=== PATIENT | female | born 1990 | race Two or more races ===

== ENCOUNTER 2023-03-19 18:00 | Inpatient (IN) | payer BC ==
[2023-03-19] MEDS ORDERED: Lidocaine 1% (PF) 30 ML VIAL SC PRN (19:02)
[2023-03-19] MEDS ORDERED: Ibuprofen 800 MG TAB PO PRN (19:02)
[2023-03-19] MEDS ORDERED: Promethazine HCl 25 MG/ML VIAL IM PRN (19:02)
[2023-03-19] MEDS ORDERED: Lactated Ringer's 1,000 ML IV SCH (19:02)
[2023-03-19] MEDS ORDERED: Ondansetron PF 4 MG/2 ML Vial IVP PRN (19:02)
[2023-03-19] MEDS ORDERED: fentaNYL 50 mcg/mL 1 mL Vial SLOW IVP PRN (19:02)
[2023-03-19] MEDS ORDERED: hydrALAZINE 20 MG/ML VIAL SLOW IVP PRN (19:02)
[2023-03-19] MEDS ORDERED: NS w/ Oxytocin 30 units 500 ML IV SCH ×3 (19:02)
[2023-03-19] MEDS ORDERED: HYDROcodone/Acetaminophen 5/325 mg Tablet PO PRN ×2 (19:02)
[2023-03-19 19:12] LABS: Hemoglobin 12.4 g/dL (12.0-15.5); Mean Corpuscular HGB CONC 33.3 g/dL (32.0-36.0); Mean Corpuscular Hemoglobin 27.7 pg (27.0-33.0); Mean Corpuscular Volume 83.2 fl (81.6-98.3); Platelet Count 197 10x3/uL (150-450); RBC Distribution Width 13.6 % (11.5-14.5); Red Blood Cell (RBC) Count 4.47 10x6/uL (3.90-5.03); White Blood Cell (WBC) Count 12.2 10x3/uL (3.5-10.5)
[2023-03-19 19:45] LABS: HBSAg Index 0.14 S/CO (0-0.99); Hep B Surf Ag - L&D Non-Reactive S/CO (NonReactive); Syphilis Antibody Nonreactive (Nonreactive); Syphilis Antibody Index 0.04 S/CO (<1.00 Non-Reactive)
[2023-03-19] MEDS ORDERED: Misoprostol 100 MCG TAB ONE (20:04)
[2023-03-19] MEDS ORDERED: Penicillin G Potassium 5 MILL.UNITS VIAL ONE (20:04)
[2023-03-19] MEDS ORDERED: Penicillin G Potassium 5 MILL.UNITS in Sodium Chloride 0.9% 100 ML IVPB SCH (20:15)
[2023-03-19] MEDS ORDERED: Misoprostol 100 MCG TAB VAG SCH (20:15)
[2023-03-19 22:15] VITALS: BMI 36.7
[2023-03-20] MEDS ORDERED: Misoprostol 100 MCG TAB VAG SCH
[2023-03-20] MEDS: Penicillin G 2.5 MILL.units 2.5 MILL.UNITS in Premix Bag 1 BAG IVPB SCH ×3 (00:34→12:29)
[2023-03-20] MEDS ORDERED: fentaNYL/Ropivacaine Epidural 100 ML ONE (04:03)
[2023-03-20] MEDS ORDERED: ePHEDrine Sulfate 50 MG/10 ML VIAL SLOW IVP PRN (04:10)
[2023-03-20] MEDS ORDERED: Ondansetron PF 4 MG/2 ML Vial IVP PRN ×2 (04:10→09:36)
[2023-03-20] MEDS ORDERED: Moisturizing Cream (Eucerin) 113 GM JAR TOP PRN (04:10)
[2023-03-20] MEDS ORDERED: Lactated Ringer's 500 ML IV PRN (04:10)
[2023-03-20] MEDS ORDERED: Acetaminophen 325 MG TAB PO PRN (04:10)
[2023-03-20] MEDS ORDERED: diphenhydrAMINE 50 MG/ML VIAL IVP PRN (04:10)
[2023-03-20] MEDS ORDERED: Promethazine HCl 25 MG/ML VIAL IM PRN (04:10)
[2023-03-20] MEDS ORDERED: Naloxone HCl 0.4 mg/ml Vial IVP PRN ×2 (04:10)
[2023-03-20] MEDS ORDERED: Communication Order-Pharmacy FS SCH (04:15)
[2023-03-20] MEDS ORDERED: fentaNYL 2 mcg/Ropivacaine 0.2% Epidural 100 ML CADD EPIDURAL SCH (04:15)
[2023-03-20] MEDS ORDERED: Milk Of Magnesia 30 ML UDCUP PO PRN (09:36)
[2023-03-20] MEDS ORDERED: Bisacodyl 10 MG SUPP PR PRN (09:36)
[2023-03-20] MEDS ORDERED: Boostrix 0.5 ML (Tdap) VIAL (>/=7 yrs of age) IM ONE (09:36)
[2023-03-20] MEDS ORDERED: diphenhydrAMINE 25 MG CAP PO PRN (09:36)
[2023-03-20] MEDS ORDERED: Preparation H Ointment 28 GM TUBE PR PRN (09:36)
[2023-03-20] MEDS ORDERED: Lanolin Ointment 7 GM TUBE TOP PRN (09:36)
[2023-03-20] MEDS ORDERED: HYDROcodone/Acetaminophen 5/325 mg Tablet PO PRN ×2 (09:36)
[2023-03-20] MEDS ORDERED: Benzocaine-Menthol 82.5 ML CAN TOP PRN (09:36)
[2023-03-20] MEDS ORDERED: hydrALAZINE 20 MG/ML VIAL SLOW IVP PRN (09:36)
[2023-03-20] MEDS ORDERED: Prenatal Vitamin 1 TAB PO SCH (11:00)
[2023-03-20] MEDS ORDERED: Docusate 100 MG CAP PO SCH (11:00)
[2023-03-20] MEDS ORDERED: Ferrous Sulfate 325 MG TAB PO SCH (11:00)
[2023-03-20] MEDS ORDERED: Bupivacaine PF 0.5% 30 ML VIAL ONE (12:45)
[2023-03-20] MEDS ORDERED: Bupivacaine HCl 0.5%/Epinephrine 1:200,000/PF 30 ml Vial ONE (12:45)
[2023-03-20] MEDS: Ibuprofen 800 MG TAB PO SCH ×2 (17:52→20:12)
[2023-03-20] MEDS: Ferrous Sulfate 325 MG TAB PO SCH (17:52)
[2023-03-20] MEDS: Docusate 100 MG CAP PO SCH (20:12)
[2023-03-21] MEDS: Ibuprofen 800 MG TAB PO SCH (06:43)
[2023-03-21] MEDS: Ferrous Sulfate 325 MG TAB PO SCH (08:23)
[2023-03-21] MEDS: Docusate 100 MG CAP PO SCH (08:24)
[2023-03-21] MEDS ORDERED: Prenatal Vitamin 1 TAB PO SCH (09:00)
[2023-03-21 09:58] VITALS: BP 132/70; TEMP 97.8
== END 2023-03-21 14:00 | disposition home or self-care (01) | DRG 807 ==
LOC: CSHLD 18:00 → CSHPP 03-20 12:05
PROVIDERS: ADMIT Obstetrics & Gynecology; ATTEND Obstetrics & Gynecology
PROC: 3E0P7VZ Introduction of Hormone into Female Reproductive, Via Natural or Artificial Opening (ICD-10-PCS; 2023-03-19)
PROC: 10E0XZZ Delivery of Products of Conception, External Approach (ICD-10-PCS; principal; 2023-03-20)
PROC: 0KQM0ZZ Repair Perineum Muscle, Open Approach (ICD-10-PCS; 2023-03-20)
DX: O70.1 Second degree perineal laceration during delivery (principal); Z37.0 Single live birth; Z3A.39 39 weeks gestation of pregnancy; Z88.1 Allergy status to other antibiotic agents; Z79.899 Other long term (current) drug therapy
CPT/HCPCS: 36415; 85027; 86780; 86850; 86900; 86901; 87340; J2540; J3490; S0020

== ENCOUNTER 2023-09-14 07:43 | Emergency (ER) | payer BC, OTHER ==
[2023-09-14 08:29] LABS: #Eosinphils 0.1 10x3/uL (0.0-0.5); #Monocytes 0.4 10x3/uL (0.0-1.1); #Neutrophils 6.5 10x3/uL (1.5-8.4); %Basophils 0.3 % (0.0-2.0); %Eosinophils 0.9 % (0.0-6.0); %Lymphocytes 28.5 % (18.0-47.0); %Monocytes 4.3 % (0.0-10.0); %Neutrophils 65.7 % (40.0-75.0); Hematocrit 37.8 % (34.9-44.5); Hemoglobin 12.5 g/dL (12.0-15.5); Mean Corpuscular HGB CONC 33.1 g/dL (32.0-36.0); Mean Corpuscular Hemoglobin 27.2 pg (27.0-33.0); Mean Corpuscular Volume 82.2 fl (81.6-98.3); Mean Platelet Volume 11.1 fl (7.4-10.4); Platelet Count 267 10x3/uL (150-450); RBC Distribution Width 12.8 % (11.5-14.5); White Blood Cell (WBC) Count 9.9 10x3/uL (3.5-10.5)
[2023-09-14 08:45] LABS: ALT (SGPT) 16 U/L (8-55); AST (SGOT) 14 U/L (5-34); Alkaline Phosphatase 89 U/L (40-110); Anion Gap 15 mmol/L (10-20); BUN (Urea Nitrogen) 14 mg/dL (7.0-18.7); Bilirubin, Total 0.4 mg/dL (0.2-1.2); Calc. Creatinine Clearance 0 mL/min (70-130); Calcium 9.1 mg/dL (7.8-10.44); Carbon Dioxide 21 mmol/L (22-29); Chloride 106 mmol/L (98-107); Estimated GFR 119; Globulin 3.2 g/dL (2.4-3.5); Glucose 120 mg/dL (70-105); Potassium 3.4 mmol/L (3.5-5.1); Protein, Total 7.2 g/dL (6.0-8.3); Sodium 139 mmol/L (136-145)
[2023-09-14 09:04] LABS: HIV (1/2) Antibody/Antigen Non-Reactive (NonReactive); HIV 1/2 INDEX 0.41 S/CO (<1.00)
[2023-09-14 12:59] LABS: Hep C IgG Ab Non-Reactive S/CO (NonReactive); Hep C Index 0.15 S/CO (0-0.79)
== END 2023-09-14 08:22 | disposition home or self-care (01) ==
LOC: CSHERS 07:43
DX: Z57.8 Occupational exposure to other risk factors (principal)
CPT/HCPCS: 36415; 80053; 85025; 86803; 87389; 99283